=== PATIENT | male | born 1975 | race Caucasian/White ===

== ENCOUNTER 2016-12-21 13:47 | Emergency (ER) | payer OTHER ==
[2016-12-21 14:23] VITALS: BP 146/68
--- NOTE | 2016-12-21 14:37 | UC ---
Headache HPI - HPI Summary HPI Summary: 41 year old male presents with complains of worse headache of his life. - History Of Current Complaint Chief Complaint: UCHeadache Stated Complaint: HEADACHE Time Seen by Provider: 12/21/16 14:34 Hx Obtained From: Patient Onset/Duration: Sudden Onset Initially Headache Was: "Worst Headache Ever", Initial Pain Scale(0-10)= - 10 Pain Scale Used: 0-10 Numeric - 10 Timing: Constant Character: Sharp - Allergies/Home Medications Allergies/Adverse Reactions: Allergies Allergy/AdvReac Type Severity Reaction Status Date / Time No Known Allergies Allergy Verified 12/21/16 14:23 Home Medications: Home Medications [id number]-Fjdlqebg [Excedrin Migraine] 1 tab PO 12/21/16 [History] Ibuprofen [Advil] 400 mg PO 12/21/16 [History] PMH/Surg Hx/FS Hx/Imm Hx Previously Healthy: Yes - Surgical History Surgical History: Yes Surgery Procedure, Year, and Place: rt knee - Social History Alcohol Use: Occasionally Substance Use Type: None Smoking Status (MU): Never Smoked Tobacco Review of Systems Constitutional: Negative Skin: Negative Eyes: Negative ENT: Negative Respiratory: Negative Cardiovascular: Negative Gastrointestinal: Negative Genitourinary: Negative Motor: Negative Neurovascular: Negative Musculoskeletal: Negative Neurological: Headache Psychological: Negative All Other Systems Reviewed And Are Negative: Yes Physical Exam Triage Information Reviewed: Yes Vital Signs: Initial Vital Signs Temp 37.8 C 12/21/16 14:20 Pulse 95 12/21/16 14:20 Resp 18 12/21/16 14:20 BP 146/68 12/21/16 14:20 Pulse Ox 97 12/21/16 14:20 Eye Exam: Normal ENT Exam: Normal Dental Exam: Normal Neck exam: Normal Neck: Positive: 1 Respiratory Exam: Normal Cardiovascular Exam: Normal Abdominal Exam: Normal Musculoskeletal Exam: Normal Neurological Exam: Normal Psychological Exam: Normal Skin Exam: Normal Headache Course/Dx - Differential Dx/Diagnosis Provider Diagnoses: worse headache of his life Discharge - Discharge Plan Condition: Stable Disposition: HOME Patient Education Materials: Acute Headache (ED) Referrals: No Primary Care Phys,NOPCP [Primary Care Provider] - Additional Instructions: patient suggested to go to the er.
== END 2016-12-21 14:43 | disposition home or self-care (01) ==
LOC: UCEAST 13:47
DX: R51 Headache (principal)
CPT/HCPCS: 99202; G0463

== ENCOUNTER 2016-12-21 15:19 | Emergency (ER) | payer OTHER ==
[2016-12-21] MEDS ORDERED: Ketorolac INJ* 60 MG/2 ML VIAL IM ONE (16:50)
[2016-12-21] MEDS ORDERED: Acetaminophen TAB* 325 MG PO ONE (19:09)
--- NOTE | 2016-12-21 19:12 | ED ---
Headache - HPI Summary HPI Summary: Pt here w/ frontal headache over frontal sinuses, nasal bridge, and behind eyes. Started yesterday - took excederin which didn't help like he would except it to. Went to bed and pain woke him around 2-3am. Has pain behind his eyes when he pushed on his eyes with lids closed - otherwise no ocular pain. Denies visual change, blurred vision, pain with eye movements but has floaters (this is baseline for him - unchanged with current sx). Denies numbness, tingling, weakness, neck pain/stiffness, syncope, dizziness, otalgia, nasal congestion, ST , rash, cough, CP, SOB, abdominal pain, N/V/D. Has had alternating sweats with chills since yesterday. Also reports allergies this time of year and some URI sx 1-2 weeks ago which seemed to have resolved well. Imms are UTD. Has 3 children at home all under the age of 10 in school/daycare. No acute illness at home except URI illness a few weeks ago. 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 - - Allergies/Home Medications Allergies/Adverse Reactions: Allergies Allergy/AdvReac Type Severity Reaction Status Date / Time No Known Allergies Allergy Verified 12/21/16 14:23 PMH/Surg Hx/FS Hx/Imm Hx Previously Healthy: Yes Endocrine/Hematology History: Denies: Hx Anticoagulant Therapy, Hx Blood Disorders, Hx Diabetes, Hx Anemia , Autoimmune Disease Cardiovascular History: Denies: Hx Aneurysm, Hx Cardiac Arrest, Hx Congenital Heart Disease, Hx Congestive Heart Failure, Hx Coronary Artery Disease, Hx Deep Vein Thrombosis, Hx Hypercholesterolemia, Hx Hypertension, Hx Rheumatic Fever, Hx Valvular Heart Disease Sensory History: Denies: Hx Glaucoma, Hx Macular Degeneration Neurological History: Denies: Hx CVA, Hx Dementia, Hx Headaches, Hx Migraine, Hx Seizures, Hx Spinal Cord Injury - Surgical History Surgery Procedure, Year, and Place: rt knee - Immunization History Immunizations Up to Date: Yes Infectious Disease History: No Infectious Disease History: Denies: Traveled Outside the [place] in Last 30 Days - Family History Known Family History: Positive: None - Social History Occupation: Employed Full-time Lives: With Family Alcohol Use: Occasionally Hx Substance Use: No Substance Use Type: Reports: None Hx Tobacco Use: No Smoking Status (MU): Never Smoked Tobacco Review of Systems Constitutional: Other - see HPI Positive: Fever, Chills Eyes: Other - see HPI Negative: Photophobia, Blurred Vision, Diplopia, Drainage, Erythema ENT: Negative Negative: Dental Pain, Sore Throat, Ear Ache, Nasal Discharge Cardiovascular: Negative Negative: Palpitations, Chest Pain Respiratory: Negative Negative: Shortness Of Breath, Cough Gastrointestinal: Negative Negative: Abdominal Pain, Vomiting, Diarrhea, Nausea Genitourinary: Negative Negative: burning, dysuria, discharge, frequency, flank pain, hematuria, incontinence, pain, urgency Musculoskeletal: Negative Negative: Arthralgia, Myalgia, Decreased ROM, Edema Skin: Negative Negative: Rash Positive: Headache. Negative: Weakness, Paresthesia, Numbness, Syncope, Slurred Speech Psychological: Normal All Other Systems Reviewed And Are Negative: Yes Physical Exam Triage Information Reviewed: Yes Vital Signs On Initial Exam: Initial Vitals Temp Pulse Resp BP Pulse Ox 97.5 F 80 20 129/84 94 12/21/16 15:26 12/21/16 15:26 12/21/16 15:26 12/21/16 15:26 12/21/16 15:26 Vital Signs Reviewed: Yes Appearance: Positive: Well-Appearing, No Pain Distress, Obese Skin: Positive: Warm - feverish, Dry Head/Face: Positive: Normal Head/Face Inspection - sinuses NTTP Eyes: Positive: Normal, EOMI, GENA, Conjunctiva Clear. Negative: Conjunctiva Inflammed, Discharge ENT: Positive: Normal ENT inspection, Hearing grossly normal, Pharynx normal, TMs normal. Negative: Pharyngeal erythema, Nasal congestion - mucosa w/ mild erythema, Nasal drainage, Tonsillar swelling, Tonsillar exudate Neck: Positive: Supple, Nontender, No Lymphadenopathy Respiratory/Lung Sounds: Positive: Clear to Auscultation, Breath Sounds Present. Negative: Rales, Rhonchi, Wheezes Cardiovascular: Positive: Normal, RRR, S1, S2. Negative: Murmur, Rub Abdomen Description: Positive: Nontender, No Organomegaly, Soft Bowel Sounds: Positive: Present Musculoskeletal: Positive: Normal, Strength/ROM Intact Neurological: Positive: Normal, Sensory/Motor Intact, Alert, Oriented to Person Place, Time, CN Intact II-III Psychiatric: Positive: Normal - [place] Coma Scale Coma Scale Total: 15 Diagnostics - Vital Signs Vital Signs Temp Pulse Resp BP Pulse Ox 12/21/16 15:26 97.5 F 80 20 129/84 94 - Laboratory Result Diagrams: 12/21/16 20:48 12/21/16 20:48 Lab Statement: Any lab studies that have been ordered have been reviewed, and results considered in the medical decision making process. Re-Evaluation - Re-Evaluation First Eval Change: Unchanged - no KURTZ improvemnet with toradol Second Eval Change: Improved - some KURTZ improvement w/ acetaminophen - not as sharp but still present and painful Headache Course/Dx - Course Course Of Treatment: Pt presents from with facial headache - initially tested for influenza and strep w/ negative results and minimal pain relief from toradol and acetaminophen. Discussed further testing as this is an abnormal KURTZ presentation for him although he admits he's not prone to headaches nor illness in general - reports he doesn't handle illness well. No known sick contacts but does have 3 children in school - possible exposure to illness. 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 Assessed labs which reveal a WBC of 12.3, abs neut 8.0, 11.1 of mono, 8 abs neuts, 1.4 abs mono. CMP, CRP and lactic acids are all WNL. NS was administered through IV form as pt reports he has odd issues when he gets dehydrated. CT brain and maxillofacial structures are w/o acute pathology. re- eval of pt is that he's feeling a little better yet. Feels comfortable to go home at this time. Discussed this could be prodrome of illness and/or migraine although not typical with fever but reports he's had a lot of stress lately and not sleeping much. Would like to take an imitrex home with him tonight in the event KURTZ returns, he can try this. If this doesn't work and/or danger s/sx present, he will return to ED. Pt and agree w/ plan. - Diagnoses Provider Diagnoses: Headache Discharge - Discharge Plan Condition: Stable Disposition: HOME Patient Education Materials: Acute Headache (ED) Referrals: [facility] [place] [facility]IAN REFERRAL [Outside] Additional Instructions: The definitive cause of your headache was not identified tonight however life threatening causes were ruled out. We discussed that this may be a prodrome of an illness soon to reveal itself - monitor for symptoms of discomfort in other areas of the body (ie. runny nose, sore throat, cough, abdominal pain, painful urination, diarrhea, rash, etc). It was also discussed that if headache returns tonight, you may try an imitrex as your symptoms may also be from a migraine. It is encouraged that you rest, stay hydrated and avod stimulation for the next few days. *If headache persists or worsens, you have visual change, neck stiffness, chest pain, shortness of breath or high fever despite acetaminophen/ibuprofen, weakness, numbness, syncope, return to ED
[2016-12-21 19:23] VITALS: BP 132/72
[2016-12-21] MEDS ORDERED: NS 0.9% 1000 ML* 1,000 ML IV ONE (20:18)
[2016-12-21 21:02] LABS: Hematocrit 45 % (42-52); Mean Corpuscular HGB Conc 34 g/dl (31-36); Mean Corpuscular Hemoglobin 29 pg (27-31); Mean Corpuscular Volume 86 fL (80-94); Mean Platelet Volume 8 um3 (7.4-10.4); Red Blood Count 5.25 10^6/ul (4.0-5.4); Red Cell Distribution Width 13 % (10.5-15); White Blood Count 12.3 10^3/ul (3.5-10.8)
--- NOTE | 2016-12-21 21:08 | RAD ---
INDICATION: Headaches COMPARISON: None TECHNIQUE: Noncontrast axial source images were acquired from the skull base to the vertex. FINDINGS: Ventricles/sulci: The ventricles and cisterns are normal in size and configuration for age. Brain parenchyma: There is no focal parenchymal finding, evidence of intracranial mass, or intracranial mass effect. Intracranial hemorrhage:None. Extra-axial spaces: There are no abnormal extra axial fluid collections or evidence of extra-axial mass. Calvarium: There is no calvarial fracture or other calvarial abnormality. Scalp: There is no evidence of scalp or extracalvarial soft tissue abnormality. Paranasal sinuses/mastoid: The paranasal sinuses and mastoid air cells are clear. Other: None. IMPRESSION: NEGATIVE EXAMINATION
[2016-12-21 21:16] LABS: Albumin 4.2 g/dL (3.2-5.2); BUN/Creatinine Ratio 15.7 (8-20); C Reactive Protein 4.36 mg/L (< 5.00); Calcium 9.3 mg/dL (8.6-10.3); EGFR African American 97.9 (>60); EGFR Non-African American 76.1 (>60); Globulin 3.1 g/dL (2-4); Potassium 3.7 mmol/L (3.5-5.0); Total Bilirubin 0.7 mg/dL (0.2-1.0); Total Protein 7.3 g/dL (6.4-8.9)
--- NOTE | 2016-12-21 21:21 | RAD ---
INDICATION: Migraine headaches. Facial pain. No trauma. COMPARISON: None TECHNIQUE: Axial source images were acquired from the vertex of the mandible through the orbits. Coronal and sagittal reconstructed images were acquired. FINDINGS: Bones: There is no acute facial bone fracture. Orbits: The globes and intraconal structures appear intact. The optic nerves are symmetric. Extraocular muscles appear normal. There is no intraconal inflammatory change or retrobulbar mass.. Paranasal sinuses: The paranasal sinuses are clear. Brain: There are no acute abnormalities of the visualized brain parenchyma. Soft tissues: Normal Other: None The visualized soft tissue elements about the neck appear normal. IMPRESSION: NEGATIVE EXAMINATION.
[2016-12-21 21:40] LABS: Manual Entry Verification MER0007; Mono Internal Control QC Line Present
[2016-12-21 21:49] LABS: Erythrocyte Sed Rate 13 mm/Hr (0-14)
[2016-12-21] MEDS ORDERED: SUMAtriptan TAB* 25 MG PO ONE (22:40)
== END 2016-12-21 23:54 | disposition home or self-care (01) ==
LOC: ED 15:19
DX: R51 Headache (principal); R50.9 Fever, unspecified
CPT/HCPCS: 36415; 70450; 70486; 80053; 83605; 85025; 85652; 86140; 86308; 87040; 87502; 87651; 96372; 99282; A9270-GY; J1885

== ENCOUNTER 2019-02-19 18:36 | Emergency (ER) | payer BC ==
[2019-02-19 18:55] VITALS: BP 127/77
--- NOTE | 2019-02-19 19:31 | UC ---
UC General HPI - HPI Summary HPI Summary: 43-year-old male comes in with a chief complaint of right flank pain. Pain started about a week ago. He reports it's mild; 2 out of 10. Denies any rash. Patient's had kidney stones before and he says this pain is not as severe as kidney stone in the past. Denies any anterior abdominal pain. Patient has been changing his diet around occasionally eating Yonatan and other diets and has had some change in his stooling pattern. He reports that normally he would have 3 bowel movements a day and that's gone down to 1 bowel movement today. Denies any burning with urination or seeing any blood in his urine. Has had a metallic taste in his mouth. Does have chronic intermittent low back pain. When the patient has the pain sometimes changing position decreases the pain. Last couple of days the patient has had some sweats and chills. He wonders if he has a viral infection in addition to the flank pain but is not sure. No runny nose. He did have a sore throats this morning. - History of Current Complaint Chief Complaint: UCBackPain Stated Complaint: BACK PAIN Time Seen by Provider: 02/19/19 18:54 Pain Intensity: 2 - Allergy/Home Medications Allergies/Adverse Reactions: Allergies Allergy/AdvReac Type Severity Reaction Status Date / Time No Known Allergies Allergy Verified 02/19/19 18:46 Home Medications: Home Medications Acetaminophen [Mapap] 500 mg PO Q12H PRN 02/19/19 [History Confirmed 02/19/19] PMH/Surg Hx/FS Hx/Imm Hx Previously Healthy: Yes GI/ History: Kidney Stones Other History Of: Negative For: Anticoagulant Therapy - Surgical History Surgical History: Yes Surgery Procedure, Year, and Place: rt knee ACL repair - Family History Known Family History: Positive: Hypertension - Social History Alcohol Use: None Substance Use Type: None Smoking Status (MU): Never Smoked Tobacco Review of Systems All Other Systems Reviewed And Are Negative: Yes Constitutional: Positive: Other - SEE HPI Skin: Positive: Negative Eyes: Positive: Negative ENT: Positive: Negative Respiratory: Positive: Negative Cardiovascular: Positive: Negative Gastrointestinal: Positive: Other - SEE HPI Genitourinary: Positive: Negative Motor: Positive: Negative Neurovascular: Positive: Negative Musculoskeletal: Positive: Other: - SEE HPI Neurological: Positive: Negative Psychological: Positive: Negative Is Patient Immunocompromised?: No Physical Exam Triage Information Reviewed: Yes Appearance: Well-Appearing, No Pain Distress, Well-Nourished Vital Signs: Initial Vital Signs Temp 98.5 F 02/19/19 18:47 Pulse 95 02/19/19 18:47 Resp 18 02/19/19 18:47 BP 127/77 02/19/19 18:47 Pulse Ox 95 02/19/19 18:47 Vital Signs Reviewed: Yes Eye Exam: Normal Eyes: Positive: Conjunctiva Clear ENT: Positive: Pharynx normal Neck: Positive: Supple Respiratory: Positive: Lungs clear, Normal breath sounds, No respiratory distress Cardiovascular: Positive: RRR Abdomen Description: Positive: Nontender, Soft, Other: - Right flank is nontender to percussion. Bowel Sounds: Positive: Present Musculoskeletal: Positive: Strength Intact, ROM Intact Neurological: Positive: Alert, Muscle Tone Normal Psychological: Positive: Age Appropriate Behavior Skin Exam: Normal - No rash appreciated in the right flank. Course/Dx - Course Course Of Treatment: Home Demonstration Agent: Nanci Reddy ([id number]) Octave Board Assembler: Jeremy HARMAN, ([email or web address]) Report Date: 02/19/2019 20:12:00 Report Status: Final Start of Report Content Patient Name: LAURA KAUR Medical Record#: [id number] Ordering Physician: Tim Meeks MD Acct.#: [id number] : Age: 43 Sex: M Location: [facility] Exam Date: 02/19/191910 ADM Status: REG ER Order Information: CT ABD/PEL W/O Accession Number: [id number] CPT: 22135 PROCEDURE INFORMATION: Exam: CT Abdomen And Pelvis Without Contrast Exam date and time: 02/19/2019 7:20 PM Age: 43 years old Clinical indication: Abdominal pain; Flank; Right; Additional info: RT flank pain TECHNIQUE: Imaging protocol: Computed tomography of the abdomen and pelvis without contrast. Radiation optimization: All CT scans at this facility use at least one of these dose optimization techniques: automated exposure control; mA and/or kV adjustment per patient size (includes targeted exams where dose is matched to clinical indication); or iterative reconstruction. COMPARISON: No relevant prior studies available. FINDINGS: Lungs: The visualized portions of the lung bases are normal. Liver: Normal. No mass. Gallbladder and bile ducts: Normal. No calcified stones. No ductal dilation. Pancreas: Normal. No ductal dilation. Spleen: Normal. No splenomegaly. Adrenals: Normal. No mass. Kidneys and ureters: No renal calculi or pelvocaliectasis. Stomach and bowel: Incompletely distended grossly normal stomach. Normal caliber small bowel. No colonic masses or segmental wall thickening. Appendix: Normal caliber appendix without wall thickening or adjacent inflammation. Intraperitoneal space: No ascites, pneumoperitoneum, or hemorrhage. Vasculature: Normal caliber aorta with no evidence of dissection or rupture. Lymph nodes: Normal. No enlarged lymph nodes. Bladder: Thin-walled bladder with no focal nodularity, perivesicular stranding, or calcifications. Reproductive: Normal sized prostate. Normal seminal vesicles. Bones/joints: No fractures. No suspicious bone lesions. Soft tissues: Normal. No hernia. IMPRESSION: No CT findings to correlate with patient's symptomatology. Specifically no obstructing renal or ureteral calculi. Dictated and Authenticated by: Nanci Reddy MD 02/19/2019 8:10 PM Eastern Time ([place] and [place]) To contact [facility] with a general question: [facility] - [phone] For direct physician to physician contact: Physician Hotline - [phone] [facility] ([facility] Facility ID #[id number]) < Electronically signed by Nanci Reddy MD in OV> 02/19/192009 Dictated By: Nanci Reddy MD Dictated Date/Time: 02/19/191919 Transcribed Date/Time: 02/19 Copy to: CC:Zoë Guillaume MD; Tim Meeks MD Imaging - [facility] - [facility] [place] [facility] - [facility] [address] [place] [id number] [place] [id number] ph ([phone]) ph ([phone]) ph ([phone]) End of Report Content ========= I discussed the CT and urine results with the patient. No acute disease process seen on the CT. CBC CMP and lipase and CPK are all pending. Plan is to follow-up with primary care doctor. Follow-up with Urology for the hematuria. Go to the emergency department if worse. - Diagnoses Provider Diagnosis: Acute right flank pain, Hematuria Discharge ED - Sign-Out/Discharge Documenting (check all that apply): Patient Departure All imaging exams completed and their final reports reviewed: Yes - Discharge Plan Condition: Stable Disposition: HOME Patient Education Materials: Hematuria (ED), Flank Pain (ED) Referrals: Zoë Guillaume MD [Primary Care Provider] - [facility] [place] [facility] [Outside] Yahir Stein MD [Medical Doctor] - Additional Instructions: FOLLOW UP WITH YOUR PRIMARY CARE DOCTOR. FOLLOW UP WITH UROLOGY FOR YOUR HEMATURIA. GO TO THE EMERGENCY DEPARTMENT IF WORSE; PAIN, FEVER, BLOOD IN YOUR URINE OR STOOL, YOU FEEL ILL OR ANY QUESTIONS OR CONCERNS. - Billing Disposition and Condition Condition: STABLE Disposition: Home
[2019-02-20 11:18] LABS: Hematocrit 45 % (42-52); Hemoglobin 15.3 g/dL (14.0-18.0); Mean Corpuscular HGB Conc 34 g/dL (31-36); Mean Corpuscular Hemoglobin 30 pg (27-31); Mean Corpuscular Volume 87 fL (80-94); Mean Platelet Volume 8.3 fL (7.4-10.4); Platelet Count 228 10^3/uL (150-450); Red Blood Count 5.15 10^6 /uL (4.18-5.48); Red Cell Distribution Width 13 % (10-15)
[2019-02-20 11:24] LABS: Albumin 4.4 g/dL (3.2-5.2); Calcium 9.4 mg/dL (8.6-10.3); Potassium 4.3 mmol/L (3.5-5.0); Total Bilirubin 0.6 mg/dL (0.2-1.0)
[2019-02-20 11:31] LABS: Albumin/Globulin Ratio 1.6 (1-3); EGFR African American 99.6 (>60); EGFR Non-African American 82.3 (>60); Globulin 2.7 g/dL (2-4); Total Protein 7.1 g/dL (6.4-8.9)
[2019-02-20 11:47] LABS: ABS Basophils 0.1 10^3/ul (0-0.2); ABS Eosinophils 0.3 10^3/ul (0-0.6); ABS Lymphocytes 1.5 10^3/ul (1.0-4.8); ABS Monocytes 2.2 10^3/ul (0-0.8); ABS Neutrophils 5.9 10^3/ul (1.5-7.7); Eosinophil % 2.9 %; Lymphocyte % 15.1 %; Nucleated Red Blood Cells % 0.3
--- NOTE | 2019-02-20 17:27 | UC ---
- Progress Note Progress Note: I spoke with patient regarding his lab work. Pathology report on blood count advised follow up monocyte count due to absolute monocytosis. Monocytes elevated to 2.2; normal total white count without a report of abnormal forms being seen. Chemistries normal. He continues to have pain in the back, and continues to have a metallic taste in his mouth. Advised that this does need follow up with his primary care physician with a repeat CBC in 2 to 4 weeks, partly dependent on his symptoms. He is transitioning care from [facility] to [facility] but will schedule a follow up. Course/Dx - Diagnoses Provider Diagnoses: Acute right flank pain, Hematuria Discharge ED - Sign-Out/Discharge Documenting (check all that apply): Post-Discharge Follow Up All imaging exams completed and their final reports reviewed: Yes - Discharge Plan Condition: Stable Disposition: HOME Patient Education Materials: Hematuria (ED), Flank Pain (ED) Referrals: [facility] [place] [facility] REFERRAL [Outside] Yahir Stein MD [Medical Doctor] - Zoë Guillaume MD [Primary Care Provider] - Additional Instructions: FOLLOW UP WITH YOUR PRIMARY CARE DOCTOR. FOLLOW UP WITH UROLOGY FOR YOUR HEMATURIA. GO TO THE EMERGENCY DEPARTMENT IF WORSE; PAIN, FEVER, BLOOD IN YOUR URINE OR STOOL, YOU FEEL ILL OR ANY QUESTIONS OR CONCERNS. - Billing Disposition and Condition Condition: STABLE Disposition: Home
== END 2019-02-19 20:51 | disposition home or self-care (01) ==
LOC: UCEAST 18:36
DX: R31.9 Hematuria, unspecified (principal); R10.9 Unspecified abdominal pain; G89.29 Other chronic pain; J02.9 Acute pharyngitis, unspecified
CPT/HCPCS: 36415; 74176; 80053; 81003; 82550; 83690; 85025; 85060; 99211; G0463

== ENCOUNTER 2019-02-22 11:45 | Emergency (ER) | payer BC ==
--- NOTE | 2019-02-22 12:00 | UC ---
Palpitation/Dysrhythmia HP - HPI Summary HPI Summary: 43 yo with recent visit for assessment of back pain and malaise, with onset today of a sense of lightheadedness and low pulse. He has had this in the past, and tried walking around to relieve it. Decided to come for evalaution, and at one point his Fitbit recorded a heart rate of 130. EKG on arrival shows sinus rhythm with a rate of 92. He continues to feel lightheaded and unable to think clearly. He has no chest pain, headache, visual disturbance + FH of heart disease in his father who had an ID at age 60. He currently is working out about 5 days per week, and feels well with this, although he generally keeps his heart rate under 130 because he feels dizzy if it goes above that rate. Reviewed recent labs showing absolute monocytosis, with follow up advised due to that. He had normal electrolytes and renal function that day. Thyroid check was not done. Denies stress. Had one cup of coffee today, drank about 5 years last night. He felt the same lightheaded sensation last night which improved when he walked around and chatted with people. - History of Current Complaint Stated Complaint: RAPID HEART RATE Time Seen by Provider: 02/22/19 11:55 Hx Obtained From: Patient Onset/Duration: Sudden Onset, Lasting Hours Timing: Constant Severity Initially: Mild Severity Currently: Moderate Character: Slow - initially felt slow, Fast Aggravating Factor(s): Exertion Alleviating Factor(s): Nothing Associated Signs & Symptoms: Positive: Lightheadedness, Dizzy - Risk Factors Cardiac: Family History Pulmonary Embolism: Negative Atrial Fibrillation: Negative - Allergy/Home Medications Allergies/Adverse Reactions: Allergies Allergy/AdvReac Type Severity Reaction Status Date / Time No Known Allergies Allergy Verified 02/22/19 12:04 PMH/Surg Hx/FS Hx/Imm Hx Previously Healthy: Yes Other History Of: Negative For: Anticoagulant Therapy - Surgical History Surgical History: Yes Surgery Procedure, Year, and Place: rt knee ACL repair - Family History Known Family History: Positive: Cardiac Disease - father had ID age 60, Hypertension - Social History Occupation: Employed Full-time Lives: With Family Alcohol Use: None Substance Use Type: None Smoking Status (MU): Never Smoked Tobacco Review of Systems All Other Systems Reviewed And Are Negative: Yes Constitutional: Positive: Negative, Other - recent labs showe absolute monocytosis--follow up was advised. Skin: Positive: Negative Eyes: Positive: Negative ENT: Positive: Negative Respiratory: Negative: Shortness Of Breath, Cough Cardiovascular: Positive: Palpitations - associated with dizziness.. Negative: Chest Pain Gastrointestinal: Positive: Other - Reviewed that he was seen here on 02/19 with back pain, had a normal CT abdome. Genitourinary: Positive: Negative Motor: Positive: Negative Neurovascular: Positive: Negative Musculoskeletal: Positive: Negative Neurological: Positive: Negative Psychological: Positive: Other - feels that he cannot think clearly, feels off and unwell. Is Patient Immunocompromised?: No Physical Exam Triage Information Reviewed: Yes Appearance: Well-Appearing - feels anxious and dizzy, No Pain Distress, Obese Eye Exam: Other - SALUD Eyes: Positive: Conjunctiva Clear ENT: Positive: Normal ENT inspection, Pharynx normal Neck: Positive: Supple, Nontender, No Lymphadenopathy Respiratory: Positive: Lungs clear, Normal breath sounds, No respiratory distress Cardiovascular: Positive: RRR, No Murmur, Pulses Normal Abdomen Description: Positive: Nontender, No Organomegaly, Soft Musculoskeletal Exam: Normal Neurological: Positive: Alert, Muscle Tone Normal Psychological Exam: Other - anxious mood and affect Skin Exam: Normal Diagnostics - EKG Cardiac Rate: NL Cardiac Rhythm: Sinus: Normal Ectopy: None ST Segment: Non-Specific Palpitations Course/Dx - Course Course Of Treatment: Given persistent dizziness and malaise, he will go to the ER for further evaluation and work up. His will accompany him there. - Differential Dx/Diagnosis Differential Diagnosis/HQI/PQRI: Coronary Artery Disease, Hyperventilation, Panic Disorder, Paroxymal SVT Provider Diagnosis: Dizziness - Physician Notifications Discussed Patient Care With: Jeanne Khan Time Discussed With Above Provider: 12:25 Discharge ED - Sign-Out/Discharge Documenting (check all that apply): Patient Departure All imaging exams completed and their final reports reviewed: No Studies - Discharge Plan Condition: Stable Disposition: [facility] Patient Education Materials: Dizziness (ED) Referrals: Zoë Guillaume MD [Primary Care Provider] - Additional Instructions: Please proceed directly to the emergency room for further evaluation of continued dizziness and lightheadedness. - Billing Disposition and Condition Condition: STABLE Disposition: [facility]
[2019-02-22 12:15] VITALS: BP 148/78
== END 2019-02-22 13:08 | disposition short-term general hospital (02) ==
LOC: UCEAST 11:45
DX: R42 Dizziness and giddiness (principal); R53.81 Other malaise
CPT/HCPCS: 93005; 99212; G0463

== ENCOUNTER 2019-02-22 13:24 | Emergency (ER) | payer BC ==
[2019-02-22 14:17] LABS: ABS Basophils 0.1 10^3/ul (0-0.2); ABS Eosinophils 0.3 10^3/ul (0-0.6); ABS Lymphocytes 1.1 10^3/ul (1.0-4.8); ABS Monocytes 1.2 10^3/ul (0-0.8); ABS Neutrophils 5.5 10^3/ul (1.5-7.7); Eosinophil % 3.1 %; Hematocrit 44 % (42-52); Hemoglobin 15.1 g/dL (14.0-18.0); Lymphocyte % 13.8 %; Mean Corpuscular HGB Conc 34 g/dL (31-36); Mean Corpuscular Hemoglobin 30 pg (27-31); Mean Corpuscular Volume 86 fL (80-94); Mean Platelet Volume 7.6 fL (7.4-10.4); Nucleated Red Blood Cells % 0.2; Platelet Count 261 10^3/uL (150-450); Red Blood Count 5.09 10^6 /uL (4.18-5.48); Red Cell Distribution Width 13 % (10-15); White Blood Count 8.2 10^3/uL (3.5-10.8)
[2019-02-22 14:22] LABS: INR 1.21 (0.82-1.09)
[2019-02-22 14:37] LABS: Troponin I 0.01 ng/mL (<0.03)
[2019-02-22 14:43] LABS: Albumin 4.4 g/dL (3.2-5.2); Albumin/Globulin Ratio 1.4 (1-3); BUN/Creatinine Ratio 17.4 (8-20); Calcium 9.5 mg/dL (8.6-10.3); EGFR African American 109.7 (>60); EGFR Non-African American 90.7 (>60); Globulin 3.2 g/dL (2-4); Magnesium 1.9 mg/dL (1.9-2.7); Potassium 4.2 mmol/L (3.5-5.0); Total Bilirubin 0.3 mg/dL (0.2-1.0); Total Protein 7.6 g/dL (6.4-8.9)
--- NOTE | 2019-02-22 14:56 | ED ---
Palpitations / Dysrhythmia - HPI Summary HPI Summary: This pt is a 43 y/o male [facility] for fast heart rate today. Pt reports today he felt his head "funny" and lightheaded along with right arm numbness with certain position so he decided to go to Urgent Care. Pt states he felt "weird" and "anxious" and as he was driving he saw his heart rate go up to 130 bpm on his watch at around 11:00-11:15. Pt states this has never happened in the past. For the past few weeks pt has been having pain in what he believes is kidneys and with metallic taste in his mouth for the past 6 months which he attributed to his keto diet (symptoms resolved on normal diet). Additionally his son who is 5 y/o had a virus and patient seemed to get the same virus. Three days ago pt went to work and had 3 episodes of urinating dark urine. That night pt went to Urgent Care and had normal blood work and UA except for mildly elevated WBC. No PMHx. FHx: diabetes, father with SC at age 60 and atrial fibrillation, mother with leukemia. - History of Current Complaint Chief Complaint: EDDysrhythmPalp Time Seen by Provider: 02/22/19 14:12 Hx Obtained From: Patient Onset/Duration: Sudden Onset Severity Initially: Moderate Character: Fast Aggravating: Nothing Alleviating: Nothing Associated Signs & Symptoms: Lightheadedness - Allergy/Home Medications Allergies/Adverse Reactions: Allergies Allergy/AdvReac Type Severity Reaction Status Date / Time No Known Allergies Allergy Verified 02/22/19 12:04 Home Medications: Home Medications NK [No Home Medications Reported] 02/22/19 [History Confirmed 02/22/19] PMH/Surg Hx/FS Hx/Imm Hx Endocrine/Hematology History: Denies: Hx Anticoagulant Therapy, Hx Blood Disorders, Hx Diabetes, Hx Anemia Cardiovascular History: Denies: Hx Aneurysm, Hx Cardiac Arrest, Hx Congenital Heart Disease, Hx Congestive Heart Failure, Hx Coronary Artery Disease, Hx Deep Vein Thrombosis, Hx Hypercholesterolemia, Hx Hypertension, Hx Rheumatic Fever, Hx Valvular Heart Disease Sensory History: Denies: Hx Glaucoma, Hx Macular Degeneration Opthamlomology History: Denies: Hx Glaucoma, Hx Macular Degeneration Neurological History: Denies: Hx CVA, Hx Dementia, Hx Headaches, Hx Migraine, Hx Seizures, Hx Spinal Cord Injury - Surgical History Surgical History: Yes Surgery Procedure, Year, and Place: rt knee ACL repair Infectious Disease History: No Infectious Disease History: Denies: Traveled Outside the [place] in Last 30 Days - Family History Known Family History: Positive: Cardiac Disease - father had SC age 60, Hypertension Family History: Mother with leukemia - Social History Alcohol Use: None Hx Substance Use: No Substance Use Type: Reports: None Hx Tobacco Use: No Smoking Status (MU): Never Smoked Tobacco Review of Systems Negative: Fever Positive: Palpitations Neurological: Other - POSITIVE: lightheadedness Positive: Numbness All Other Systems Reviewed And Are Negative: Yes Physical Exam - Summary Physical Exam Summary: Constitutional: Well-developed, Well-nourished, Alert. (-) Distressed Skin: Warm, Dry HENT: Normocephalic; Atraumatic Eyes: Conjunctiva normal Neck: Musculoskeletal ROM normal neck. (-) JVD, (-) Stridor Cardio: Rhythm regular, rate normal, Heart sounds normal; Intact distal pulses; Radial pulses are 2+ and symmetric. (-) Murmur Pulmonary/Chest wall: Effort normal. (-) Respiratory distress, (-) Wheezes, (-) Rales Abd: Soft, (-) tenderness, (-) Distension, (-) Guarding, (-) Rebound Musculoskeletal: (-) Edema Lymph: (-) Cervical adenopathy Neuro: Alert, Oriented x3 Psych: Mood and affect Normal Triage Information Reviewed: Yes Vital Signs On Initial Exam: Initial Vitals Temp Pulse Resp BP Pulse Ox 98.3 F 92 18 147/88 99 02/22/19 13:33 02/22/19 13:33 02/22/19 13:33 02/22/19 13:33 02/22/19 13:33 Vital Signs Reviewed: Yes Procedures - Sedation Patient Received Moderate/Deep Sedation with Procedure: No Diagnostics - Vital Signs Vital Signs Temp Pulse Resp BP Pulse Ox 02/22/19 14:15 85 15 139/86 94 02/22/19 14:13 89 96 02/22/19 13:33 98.3 F 92 18 147/88 99 - Laboratory Lab Results: Lab Results 02/22/19 02/22/19 02/22/19 Range/Units 13:59 13:59 13:59 WBC 8.2 (3.5-10.8) 10^3/uL RBC 5.09 (4.18-5.48) 10^6 /uL Hgb 15.1 (14.0-18.0) g/dL Hct 44 (42-52) % MCV 86 (80-94) fL MCH 30 (27-31) pg MCHC 34 (31-36) g/dL RDW 13 (10-15) % Plt Count 261 (150-450) 10^3/uL MPV 7.6 (7.4-10.4) fL Neut % (Auto) 67.1 % Lymph % (Auto) 13.8 % [place] % (Auto) 15.3 % Eos % (Auto) 3.1 % Baso % (Auto) 0.7 % Absolute Neuts (auto) 5.5 (1.5-7.7) 10^3/ul Absolute Lymphs (auto) 1.1 (1.0-4.8) 10^3/ul Absolute Monos (auto) 1.2 H (0-0.8) 10^3/ul Absolute Eos (auto) 0.3 (0-0.6) 10^3/ul Absolute Basos (auto) 0.1 (0-0.2) 10^3/ul Absolute Nucleated RBC 0.0 10^3/ul Nucleated RBC % 0.2 INR (Anticoag Therapy) 1.21 H (0.82-1.09) Sodium 138 (135-145) mmol/L Potassium 4.2 (3.5-5.0) mmol/L Chloride 101 (101-111) mmol/L Carbon Dioxide 29 (22-32) mmol/L Anion Gap 8 (2-11) mmol/L BUN 16 (6-24) mg/dL Creatinine 0.92 (0.67-1.17) mg/dL Est GFR ( Amer) 109.7 (>60) Est GFR (Non-Af Amer) 90.7 (>60) BUN/Creatinine Ratio 17.4 (8-20) Glucose 109 H (70-100) mg/dL Calcium 9.5 (8.6-10.3) mg/dL Magnesium 1.9 (1.9-2.7) mg/dL Total Bilirubin 0.30 (0.2-1.0) mg/dL AST 22 (13-39) U/L ALT 31 (7-52) U/L Alkaline Phosphatase 65 (34-104) U/L Troponin I 0.01 (<0.03) ng/mL Total Protein 7.6 (6.4-8.9) g/dL Albumin 4.4 (3.2-5.2) g/dL Globulin 3.2 (2-4) g/dL Albumin/Globulin Ratio 1.4 (1-3) TSH Pending Result Diagrams: 02/22/19 13:59 02/22/19 13:59 Lab Statement: Any lab studies that have been ordered have been reviewed, and results considered in the medical decision making process. Re-Evaluation - Re-Evaluation First Eval Re-Evaluation Time: 15:30 Change: Improved - feeling improved. orthostatic vital signs WNL. D/w patient getting holter Course/Dx - Course Course Of Treatment: 43-year-old male with no past medical history presents with palpitations and tachycardia home. - Physical exam well-appearing, vital signs notable for heart rate in the 80s. Labs with a stable hemoglobin, no electrolyte are not his. Troponin negative. EKG sinus. TSH within normal limits. Orthostatic vital signs obtained here after 1 L of fluids unremarkable , suspect symptoms could be secondary to dehydration versus arrhythmia at home. Patient advised to follow-up with primary care doctor to get a Holter monitor. - Diagnoses Provider Diagnoses: Palpitations Discharge ED - Sign-Out/Discharge Documenting (check all that apply): Patient Departure - Discharge home - Discharge Plan Condition: Stable Disposition: HOME Patient Education Materials: Heart Palpitations (DC) Referrals: Zoë Guillaume MD [Primary Care Provider] - Additional Instructions: You were seen in the emergency department for palpitations. Your labs did not show a cause for this. Please follow up with your primary care doctor to get a Holter monitor. Please follow up with your primary care doctor in next 2-3 days and return to emergency department for fast heart rate, passing out, chest pain, worsening or concerning symptoms. It was a pleasure taking care of you today. - Billing Disposition and Condition Condition: STABLE Disposition: Home - Attestation Statements Document Initiated by Scribe: Yes Documenting Scribe: Ashanti Farmer Provider For Whom Scribe is Documenting (Include Credential): Melba Perkins MD Scribe Attestation: I, Ashanti Farmer, scribed for Melba Perkins MD on 02/22/19 at 1657. Scribe Documentation Reviewed: Yes Provider Attestation: The documentation as recorded by the scribeAshanti accurately reflects the service I personally performed and the decisions made by me, Melba Perkins MD Status of Scribe Document: Viewed
[2019-02-22] MEDS: NS 0.9% 1000 ML** 1,000 ML IV ONE (15:03)
[2019-02-22 15:10] LABS: TSH (Thyroid Stimulating Horm) 2.79 mcIU/mL (0.34-5.60)
[2019-02-22 15:47] VITALS: BP 135/80
== END 2019-02-22 15:54 | disposition home or self-care (01) ==
LOC: ED 13:24
DX: R00.2 Palpitations (principal)
CPT/HCPCS: 36415; 80053; 83735; 84443; 84484; 85025; 85610; 99283